=== PATIENT | female | born 1940 | race Hispanic/Latino ===

== ENCOUNTER 2018-02-19 10:24 | Outpatient (CLI) | payer MEDICARE, BC | END 2018-02-19 10:25 | disposition home or self-care (01) | LOC: BICULT 10:24 | PROVIDERS: ATTEND Urology | DX: N20.0 Calculus of kidney (principal); R35.0 Frequency of micturition | CPT/HCPCS: 74018; 76536 ==

== ENCOUNTER 2018-03-25 09:01 | Outpatient (CLI) | payer BC, MEDICARE | END 2018-03-25 09:02 | disposition home or self-care (01) | LOC: BICMAMMO 09:01 | PROVIDERS: ATTEND Internal Medicine | DX: Z12.31 Encounter for screening mammogram for malignant neoplasm of breast (principal) | CPT/HCPCS: 77063; 77067 ==

== ENCOUNTER 2019-09-13 08:02 | Outpatient (CLI) | payer MEDICARE, BC ==
--- NOTE | 2019-09-13 09:08 | BD ---
DEXA BONE DENSITY SCAN: DATE: 09/13/2019. COMPARISON: None. HISTORY: Postmenopausal female undergoing screening for osteoporosis. FINDINGS: Lumbar Spine: BMD (g/cm2) L1 0.923 T-Score: -0.6 L2 1.100 T-Score: 0.7 L3 0.987 T-Score: -0.9 L4 0.842 T-Score: -2.0 L1-L4 0.952 T-Score: -0.9 Femoral Neck: 0.679 T-Score: -1.5 Total Femur: 0.903 T-Score: -0.3 FRAX-WHO fracture risk assessment tool was not reported as the patient is being treated for osteoporo sis. IMPRESSION: Osteopenia within the femoral neck correlating with a moderately increased risk for fracture. Transcribed Date/Time: 09/13/2019 9:20 AM
--- NOTE | 2019-09-13 09:16 | MMO ---
Bilateral MAMMO Bilat Screen [facility]. CLINICAL HISTORY: Patient is 78 years old and is seen for screening. The patient has no family history of breast cancer. The patient has no personal history of cancer. The patient has a history of left Excisional Biopsy in 1978 - Benign. VIEWS: The views performed were: bilateral craniocaudal with tomosynthesis; bilateral mediolateral oblique with tomosynthesis; and right exaggerated craniocaudal. FILMS COMPARED: The present examination has been compared to prior imaging studies performed at [facility] on 03/20/2015, 03/21/2016, 03/24/2017 and 03/25/2018. This study has been interpreted with the assistance of computer-aided detection. MAMMOGRAM FINDINGS: The breasts are heterogeneously dense, which could obscure a lesion on mammography. There are stable benign appearing calcifications seen in both breasts. There are no suspicious masses, suspicious calcifications, or new areas of architectural distortion. IMPRESSION: THERE IS NO MAMMOGRAPHIC EVIDENCE OF MALIGNANCY. A ROUTINE FOLLOW-UP MAMMOGRAM IN 1 YEAR IS RECOMMENDED. THE RESULTS OF THIS EXAM WERE SENT TO THE PATIENT. ACR BI-RADS Category 2 - Benign finding MAMMOGRAPHY NOTE: 1. A negative mammogram report should not delay a biopsy if a dominant of clinically suspicious mass is present. 2. Approximately 10% to 15% of breast cancers are not detected by mammography. 3. Adenosis and dense breasts may obscure an underlying neoplasm. Reported by: NICHOL AMAYA MD Electonically Signed: [id number]
== END 2019-09-13 08:03 | disposition home or self-care (01) ==
LOC: BICMAMMO 08:02
PROVIDERS: ATTEND Internal Medicine
DX: Z12.31 Encounter for screening mammogram for malignant neoplasm of breast (principal); Z13.820 Encounter for screening for osteoporosis; M85.859 Other specified disorders of bone density and structure, unspecified thigh; Z78.0 Asymptomatic menopausal state
CPT/HCPCS: 77063; 77067; 77080

== ENCOUNTER 2020-11-01 08:42 | Outpatient (CLI) | payer MEDICARE, BC | END 2020-11-01 08:43 | disposition home or self-care (01) | LOC: BICMAMMO 08:42 | PROVIDERS: ATTEND Internal Medicine | DX: Z12.31 Encounter for screening mammogram for malignant neoplasm of breast (principal); Z91.89 Other specified personal risk factors, not elsewhere classified | CPT/HCPCS: 77063; 77067 ==

== ENCOUNTER 2021-11-22 10:41 | Outpatient (CLI) | payer MEDICARE | END 2021-11-22 10:42 | disposition home or self-care (01) | LOC: BICMAMMO 10:41 | PROVIDERS: ATTEND Internal Medicine | DX: Z12.31 Encounter for screening mammogram for malignant neoplasm of breast (principal); Z91.89 Other specified personal risk factors, not elsewhere classified | CPT/HCPCS: 77063; 77067 ==

== ENCOUNTER 2022-07-31 09:36 | Outpatient (CLI) | payer MEDICARE | END 2022-07-31 09:37 | disposition home or self-care (01) | LOC: RAD 09:36 | PROVIDERS: ATTEND Internal Medicine | DX: M25.571 Pain in right ankle and joints of right foot (principal); M16.11 Unilateral primary osteoarthritis, right hip; I87.2 Venous insufficiency (chronic) (peripheral); I87.8 Other specified disorders of veins ==

== ENCOUNTER 2022-09-02 10:31 | Outpatient (CLI) | payer MEDICARE | END 2022-09-02 10:32 | disposition home or self-care (01) | LOC: BICRAD 10:31 | PROVIDERS: ATTEND Internal Medicine | DX: M54.2 Cervicalgia (principal); M19.90 Unspecified osteoarthritis, unspecified site; M41.9 Scoliosis, unspecified; M47.816 Spondylosis without myelopathy or radiculopathy, lumbar region; M47.812 Spondylosis without myelopathy or radiculopathy, cervical region | CPT/HCPCS: 72040; 72072; 72100 ==

== ENCOUNTER 2022-09-26 14:46 | Outpatient (CLI) | payer MEDICARE | END 2022-09-26 14:47 | disposition home or self-care (01) | LOC: BICULT 14:46 | PROVIDERS: ATTEND Internal Medicine | DX: I83.91 Asymptomatic varicose veins of right lower extremity (principal); M79.604 Pain in right leg ==

== ENCOUNTER 2022-12-11 10:54 | Outpatient (CLI) | payer MEDICARE | END 2022-12-11 10:55 | disposition home or self-care (01) | LOC: BICMAMMO 10:54 | PROVIDERS: ATTEND Internal Medicine | DX: Z12.31 Encounter for screening mammogram for malignant neoplasm of breast (principal); Z91.89 Other specified personal risk factors, not elsewhere classified | CPT/HCPCS: 77063; 77067 ==

== ENCOUNTER 2022-12-31 09:01 | Outpatient (CLI) | payer MEDICARE | END 2022-12-31 09:02 | disposition home or self-care (01) | LOC: BICMAMMO 09:01 | PROVIDERS: ATTEND Internal Medicine | DX: Z78.0 Asymptomatic menopausal state (principal); M85.80 Other specified disorders of bone density and structure, unspecified site | CPT/HCPCS: 77080 ==

== ENCOUNTER 2023-05-27 13:33 | Outpatient (CLI) | payer MEDICARE | END 2023-05-27 13:34 | disposition home or self-care (01) | LOC: BICRAD 13:33 | PROVIDERS: ATTEND Internal Medicine | DX: R22.41 Localized swelling, mass and lump, right lower limb (principal); I83.90 Asymptomatic varicose veins of unspecified lower extremity ==

== ENCOUNTER 2023-06-02 08:09 | Outpatient (CLI) | payer MEDICARE | END 2023-06-02 08:10 | disposition home or self-care (01) | LOC: ULT 08:09 | PROVIDERS: ATTEND Internal Medicine | DX: I83.91 Asymptomatic varicose veins of right lower extremity (principal); R22.41 Localized swelling, mass and lump, right lower limb ==